=== PATIENT | female | born 1995 | race Caucasian/White ===

== ENCOUNTER → 2022-07-20 | Outpatient (CLI) | payer OTHER ==
--- NOTE | 2022-07-20 09:14 | USB ---
Technique: Method: Targeted. Findings: The axilla of the right breast was scanned. Difficult to measure lipoma right axillary tail at the site of clinical concern. No worrisome lesions noted. Overall Assessment: Benign, BI-RAD 2 Management: Screening Mammogram of both breasts at age 38. A clinical breast exam by your physician is recommended on an annual basis and results should be correlated with mammographic findings. Electronically signed and approved by: Bruce Ku M.D. [facility]
== END | disposition home or self-care (01) ==
LOC: RADUSWWP 08:51 → MERGE 09:00
PROVIDERS: ATTEND Obstetrics & Gynecology Obstetrics
DX: N64.4 Mastodynia (principal)